=== PATIENT | male | born 1945 ===

== ENCOUNTER 2022-04-04 08:45 | Inpatient (IN) | payer OTHER ==
[~2022-04-04] VITALS: Ht 167.6 cm; Wt 72.6 kg
[2022-04-04] MEDS ORDERED: ZESTRIL20 MG PO (13:10)
[2022-04-04] MEDS ORDERED: LIPITOR20 MG PO (13:10)
== END 2022-05-02 16:24 | disposition home or self-care (01) | DRG 330 ==
LOC: SURH 04-09 08:45 → O/R 04-29 06:05 → SURH 04-29 06:05
PROVIDERS: ADMIT Colon & Rectal Surgery; ATTEND Colon & Rectal Surgery
PROC: 07BB4ZZ Excision of Mesenteric Lymphatic, Percutaneous Endoscopic Approach (ICD-10-PCS; 2022-04-29)
PROC: 0DTF4ZZ Resection of Right Large Intestine, Percutaneous Endoscopic Approach (ICD-10-PCS; principal; 2022-04-29 11:15)
DX: C18.0 Malignant neoplasm of cecum (principal); K92.1 Melena; Z85.038 Personal history of other malignant neoplasm of large intestine; Z20.822 Contact with and (suspected) exposure to COVID-19; I10 Essential (primary) hypertension; E78.49 Other hyperlipidemia